=== PATIENT | male | born 1965 | race Caucasian/White ===

== ENCOUNTER → 2017-04-09 | Outpatient (CLI) | payer BC ==
[~2017-04-09] MED LIST: AMLO5TAB2 PO; DOXY100C2 PO; GADOBENATE DIMEGLUMINE 20 ML IV ONE
== END | disposition home or self-care (01) ==
LOC: RAH 10:43
PROVIDERS: ATTEND Family Medicine
DX: M47.897 Other spondylosis, lumbosacral region (principal); M48.07 Spinal stenosis, lumbosacral region
CPT/HCPCS: 72158; A9577

== ENCOUNTER → 2024-12-26 | Outpatient (CLI) | payer OTHER ==
[~2024-12-26] MED LIST changes: +AMLO-257 PO; -AMLO5TAB2 PO; -DOXY100C2 PO; +DOXY100C5 PO; -GADOBENATE DIMEGLUMINE 20 ML IV ONE
--- NOTE | 2024-12-27 10:42 | HMCIMG ---
EXAM: CT Cardiac calcium scoring. CLINICAL HISTORY: CAD screening. TECHNIQUE: Thin collimated axial CT cardiac images were obtained. A CT scan is done according to ALARA (As Low As Reasonably Achievable). CONTRAST: None. COMPARISON: None provided. FINDINGS: Calcium Score: VESSEL Number of lesions Volume mm3 Equi. Mass/mg Calcium score LM 3 3.7 --.-- 5.1 LAD 4 284.1 --.-- 351.5 LCX 4 40.6 --.-- 57.7 RCA 8 377.6 --.-- 467.2 Total 19 705.9 --.-- 881.4 IMPRESSION: The calcium score is 881.4. This places the patient above 90th percentile in comparison to a group of patients asymptomatic for coronary artery disease with the same age and gender. This means that >90% of males aged 60-64 have a calcium score that is lower than the patient's. /[place]
== END | disposition home or self-care (01) ==
LOC: RAH 14:41
PROVIDERS: ATTEND Family Medicine
DX: Z13.6 Encounter for screening for cardiovascular disorders (principal); I25.10 Atherosclerotic heart disease of native coronary artery without angina pectoris
CPT/HCPCS: 75571